=== PATIENT | male | born 1970 ===

== ENCOUNTER 2024-03-12 03:04 | Emergency (ER) | payer OTHER, SELFPAY ==
[2024-03-12 03:13] VITALS: BP 136/71; PULSE 76; RESP 16; TEMP 36.1; O2SAT 96; BMI 27.5
--- NOTE | 2024-03-12 03:33 | ED_ITS ---
HPI - General Adult General Chief complaint: Abdominal Pain Stated complaint: Abdominal pain Time Seen by Provider: 03/12/24 03:19 Source: patient and family Mode of arrival: ambulatory Limitations: no limitations History of Present Illness HPI narrative: 53-year-old male presents to the ED in the wee hours of the morning with a 4 day history of loose stools and abdominal cramping. Nauseated with no vomiting. No bloody stools, no fever. Does feel a little achy. He thinks he might be getting dehydrated despite the fact that he is clearly eating and drinking without complication. His is concerned because for the last 2 days every time he eats he has to go to the bathroom and have loose stools. They have not tried any Kaopectate, Imodium or Pepto-Bismol. There was no loss of consciousness, no severe weakness or confusion. He last urinated about 6 hours ago, uncomplicated. He is still drinking water. Had meat, rice and beans for dinner. Has not tried any pain medications. No sick contacts, no pertinent travel, no recent use of antibiotics. No abdominal trauma or injury. No prior abdominal surgeries. Did not try any other interventions prior to coming to the emergency department. Has not been evaluated in a primary care clinic, urgent care or other typical setting for these symptoms. Denies any significant past medical history. No allergies, no long-term medications, no prior abdominal surgeries. Nonsmoker. ROS notable for the abdominal symptoms and generalized symptoms as described above only, otherwise denies times 12 systems. Related Data Previous Rx's ?Medication ?Instructions ?Recorded loperamide 2 mg capsule (Imodium 2 mg PO Q4H PRN loose stool #20 03/12/24 A-D) caps ondansetron 4 mg disintegrating 4 mg PO Q8H PRN nausea and 03/12/24 tablet vomiting #7 tabs Allergies Allergy/AdvReac Type Severity Reaction Status Date / Time No Known Drug Allergies Allergy Verified 03/12/24 03:19 [facility] Social History Smoking Status: Never smoker Do you use any of these nicotine containing products: None Second hand tobacco smoke exposure: No How often do you have a drink containing alcohol: never How often do you have six or more drinks on one occasion: Never AUDIT-C Alcohol total score: 0 Non-prescribed substance use: denies use service: No Exam Const: Vital Signs, click to edit/add: Vital Signs - 24 hr 03/12/24 03:13 03/12/24 03:59 Temperature 96.9 F L Pulse Rate [Pulse Oximeter] 76 Pulse Rate [orthos tatic lying] 55 L Pulse Rate [orthos tatic sitting] 59 L Pulse Rate [orthos tatic standing] 63 Respiratory Rate 16 Blood Pressure [Ri ght Upper Arm] 136/71 Blood Pressure [or thostatic lying] 121/69 Blood Pressure [or thostatic sitting] 120/74 Blood Pressure [or thostatic standing ] 112/74 Pulse Oximetry 96 Oxygen Delivery Me thod Room Air Documenting provider has reviewed patient's vital signs: yes Common normals: no apparent distress and alert General appearance: cooperative and well kempt Other: Spouse seems quite nervous, patient calm HENMT: Common normals: normocephalic Head and scalp: normocephalic Face and sinus: normal facial exam Mouth: oral and palatal mucosa normal, lip normal, tongue normal and moist mucous membranes abnormal Throat: posterior oropharynx normal Other: Moist mucous membranes Eye: Common normals: conjunctivae normal General eye: normal appearance of both eyes Conjunctiva: conjunctiva(e) normal Neck & C-Spine: Common normals: no lymphadenopathy General: normal visual inspection Resp: Common normals: normal respiratory effort, no use of accessory muscles and clear to auscultation bilaterally Effort & inspection: able to speak in complete sentences Auscultation: clear to auscultation bilaterally Cardio: Common normals: regular rate, regular rhythm, S1 normal heart sound, S2 normal heart sound and no murmurs Rate: regular rate Rhythm: regular rhythm Heart sounds: S1 normal and S2 normal GI: Common normals: Normal to inspection, nondistended, normoactive bowel sounds present, soft to palpation, non-tender, no hepatosplenomegaly and no masses Palpation: soft and no hepatosplenomegaly : Common normals: no CVA tenderness Bladder/kidney exam: no CVA tenderness Back & Pelvis: Common normals: no CVA tenderness Extremity: Common normals: normal to inspection and normal capillary refill Neuro: Sensorium/orientation: alert Speech: speech normal Motor exam: no movement abnormalities noted Psych: Common normals: speech normal Appearance: well kempt Activity/motor behavior: appropriate eye contact Speech: normal speech Mood and affect: euthymic mood Attention/concentration: attention grossly intact Skin: Common normals: no rashes or lesions noted General skin exam: no rashes or lesions noted Course Course ED Course: 53-year-old afebrile male with stable vitals, moist membranes and no clinical signs of dehydration presenting with 4 days of loose stools and nausea without a trial of any [id number] medications. Clinical exam is quite reassuring. Patient thinks he needs IV fluids, I do not. Will obtain basic labs to ensure that there is no sign of biliary obstruction, leukocytosis, dehydration or kidney disease. Will obtain urinalysis and COVID swab. Will give oral Zofran, oral Imodium and oral Tylenol and re-evaluate. Fluid challenge and if he can not hold down fluids, he will be discharged on the same medications. Reevaluation(s) Time of Reevaluation #1: 04:25 Reevaluation #1: Labs are all reassuring. Orthostatic vitals are also reassuring. Patient tolerated oral medications well and has not had any vomiting and is holding down nutrition here in the ED without complication. I think this is a simple stomach flu. Patient should be able to manage with [id number] Imodium but will send a prescription for Zofran in case symptoms worsen. Counseled on pushing fluids and alarm symptoms that would warrant ED presentation. Primary care follow-up in 7-10 days if not improving. Update: COVID swabs are also negative. Vital Signs Vital signs: Initial Vital Signs Temperature 96.9 F L 03/12/24 03:13 Temperature Source Temporal Artery Scan 03/12/24 03:13 Pulse Rate 76 03/12/24 03:13 Pulse Rhythm Regular 03/12/24 03:13 Respiratory Rate 16 03/12/24 03:13 Blood Pressure 136/71 03/12/24 03:13 Blood Pressure Mean 92 03/12/24 03:13 Blood Pressure Position Sitting 03/12/24 03:13 Pulse Oximetry 96 03/12/24 03:13 Oxygen Delivery Method Room Air 03/12/24 03:13 Vital Signs Temperature 96.9 F L 03/12/24 03:13 Pulse Rate 76 03/12/24 03:13 Respiratory Rate 16 03/12/24 03:13 Blood Pressure 136/71 03/12/24 03:13 Pulse Oximetry 96 03/12/24 03:13 Oxygen Delivery Method Room Air 03/12/24 03:13 Temperature 96.9 F L 03/12/24 03:13 Pulse Rate 55 L 03/12/24 03:59 Respiratory Rate 16 03/12/24 03:13 Blood Pressure 121/69 03/12/24 03:59 Pulse Oximetry 96 03/12/24 03:13 Oxygen Delivery Method Room Air 03/12/24 03:13 Medications Administered Medications: Generic Name Dose Route Start Last Admin Trade Name Leesa PRN Reason Stop Dose Admin Acetaminophen 1,000 mg 03/12/24 03:30 03/12/24 03:42 Acetaminophen 500 Mg Tablet PO 03/12/24 03:31 1,000 mg ONCE ONE Administration Loperamide HCl 4 mg 03/12/24 03:30 03/12/24 03:41 Loperamide Hcl 2 Mg Capsule PO 03/12/24 03:31 4 mg ONCE ONE Administration Ondansetron HCl 4 mg 03/12/24 03:30 03/12/24 03:41 Ondansetron Odt 4 Mg Tab PO 03/12/24 03:31 4 mg ONCE ONE Administration Medical Decision Making Lab Data Lab results reviewed: Yes I reviewed the patient's lab results Lab results narrative: Reassuring. No leukocytosis, elevated bilirubin, abnormal like to lytes, dehydration or abnormal urinalysis. Labs: Lab Results 03/12/24 03/12/24 Range/Units 03:40 03:45 WBC 4.71 (4.50-11.00) K/uL RBC 4.68 (4.30-5.90) m/uL Hgb 14.6 (13.5-17.5) gm/dL Hct 43.2 (37.0-53.0) % MCV 92 (80-100) fL MCH 31 (26-34) pg MCHC 34 (32-36) gm/dL RDW Coeff of Alberto 12.6 (11.5-15.5) % Plt Count 157 (140-440) K/uL Neut % (Auto) 48.0 (42.0-72.0) % Lymph % (Auto) 34.8 (20-44) % [place] % (Auto) 13.8 H (0.0-11.0) % Eos % (Auto) 2.8 (0.0-7.0) % Baso % (Auto) 0.2 (0.0-3.0) % Neut # (Auto) 2.26 (1.7-7.0) K/uL Lymph # (Auto) 1.64 (0.90-2.90) K/uL Sully # (Auto) 0.60 (0.00-0.90) K/UL Eos # (Auto) 0.13 (0.00-0.50) K/uL Baso # (Auto) 0.01 (0.00-0.30) K/uL Abs Immat Gran (auto) 0.02 (0.00-0.30) K/uL Imm/Tot Granulo (auto) 0.4 % Sodium 138 (135-149) mmol/L Potassium 3.5 L (3.6-5.1) mmol/L Chloride 106 (96-114) mmol/L Carbon Dioxide 24 (20-32) mmol/L Anion Gap 8 (7-15) mEq/L BUN 22 (7-30) mg/dL Creatinine 1.2 (0.5-1.5) mg/dL Estimated Creat Clear 60.30 Estimated GFR 73 ml/min Glucose 119 H (60-115) mg/dL Lactate 0.9 (0.5-1.9) mmol/L Calcium 8.6 (8.4-10.6) mg/dL Total Bilirubin 0.5 (0.1-1.5) mg/dL AST 36 H (12-35) U/L ALT 37 (4-50) U/L Alkaline Phosphatase 87 (40-150) U/L C-Reactive Protein 1.5 H (0.5-1.0) mg/dL Total Protein 7.2 (6.0-8.3) g/dL Albumin 4.3 (3.3-5.0) g/dL Urine Color Yellow (Yellow) Urine Appearance Clear (Clear) Urine pH 6.5 (5.0-8.5) Ur Specific [place] 1.025 (1.000-1.030) Urine Protein Negative (Negative) Urine Glucose (UA) Negative (Negative) Urine Ketones Negative (Negative) Urine Blood Negative (Negative) Urine Nitrite Negative (Negative) Urine Bilirubin Negative (Negative) Urine Urobilinogen 0.2 (0.2-1.0) Ur Leukocyte Esterase Negative (Negative) SARS-CoV-2 (PCR) Negative SARS-CoV-2 (Negative) Influenza Type A (PCR) Negative PCR FLU A (Negative) Influenza Type B (PCR) Negative PCR FLU B (Negative) RSV (PCR) Negative PCR RSV (Negative) Discharge Plan Discharge Clinical Impression: Gastroenteritis Patient Disposition: Home w/ Parent or Adult Condition: Improved Instructions: Gastroenteritis (DC) Additional Instructions: As we discussed, there are no clinical signs of dehydration on your exam today. Typically, the emergency department is necessary if you have been physically unable to hold down any food or liquid for several days, have high fever, bloody stools or other emergent type symptoms. In the future, it is always a good idea to try [id number] Imodium for loose stools and Tylenol and or ibuprofen for abdominal pain. With these typical mild stomach viruses, symptoms will tend to last for 3-7 days. You should be re-evaluated if symptoms are not improving in 1 week in the clinic. In the meantime, it is safe for you to continue use of the Imodium 1 tablet every 2 hours if you continue to have loose stools. Will also give you prescription for a few Zofran, the anti nausea medication. You may use this up to every 6 hours. Continue to advance her diet and drink lots of fluids until your symptoms improve. You may return to all work and or school duties. Activity Level: No Restrictions Discharge Diet: Regular Prescriptions: New ondansetron 4 mg tablet,disintegrating 4 mg PO Q8H PRN (Reason: nausea and vomiting) Qty: 7 0RF loperamide [Imodium A-D] 2 mg capsule 2 mg PO Q4H PRN (Reason: loose stool) Qty: 20 0RF Rx Instructions: administer after each loose stool until symptoms controlled; do not exceed 8 mg per 24 hrs Stand Alone Forms: [employer] Info Instructions
[2024-03-12] MEDS: ONDANSETRON ODT 4 MG TAB PO (03:41)
[2024-03-12] MEDS: LOPERAMIDE HCL 2 MG CAPSULE 4 MG PO (03:41)
[2024-03-12] MEDS: ACETAMINOPHEN 500 MG TABLET 1000 MG PO (03:42)
[2024-03-12 03:53] LABS: Lactate* 0.9 mmol/L (0.5-1.9)
[2024-03-12 03:54] LABS: Basophils Absolute Auto 0.01 K/uL (0.00-0.30); Basophils Percent Auto 0.2 % (0.0-3.0); Eosinophils Absolute Auto 0.13 K/uL (0.00-0.50); Eosinophils Percent Auto 2.8 % (0.0-7.0); Hematocrit 43.2 % (37.0-53.0); Hemoglobin* 14.6 gm/dL (13.5-17.5); Immature Granulocytes Abs Auto 0.02 K/uL (0.00-0.30); Immature Granulocytes Pct Auto 0.4 %; Lymphocytes Absolute Auto 1.64 K/uL (0.90-2.90); Lymphocytes Percent Auto 34.8 % (20-44); Mean Corpuscular HGB Conc 34 gm/dL (32-36); Mean Corpuscular Hemoglobin 31 pg (26-34); Mean Corpuscular Volume 92 fL (80-100); Monocytes Percent Auto 13.8 % (0.0-11.0); Neutrophils Absolute Auto 2.26 K/uL (1.7-7.0); Platelet Count* 157 K/uL (140-440); RDW Coefficient of Variation % 12.6 % (11.5-15.5); Red Blood Count 4.68 m/uL (4.30-5.90); White Blood Count* 4.71 K/uL (4.50-11.00)
[2024-03-12 03:57] LABS: Slide Review Reflex No
--- NOTE | 2024-03-12 03:57 | PC.NURSE ---
Pt's states pt woke up to go to the bathroom tonight and when he stood he felt dizzy and heart pounding. She said pt was scared and was then brought to ED. Orthostatics done prior to PO challenge.
[2024-03-12 03:58] LABS: Appearance Urine Clear (Clear); Bilirubin Urine Negative (Negative); Blood Urine Negative (Negative); Color Urine Yellow (Yellow); Glucose Urine Negative (Negative); Ketones Urine Negative (Negative); Leukocyte Esterase Urine Negative (Negative); Nitrite Urine Negative (Negative); Protein Urine Negative (Negative); Specific Gravity Urine 1.025 (1.000-1.030); Urobilinogen Urine 0.2 (0.2-1.0); pH Urine 6.5 (5.0-8.5)
[2024-03-12 03:59] VITALS: BP 112/74; BP 120/74; BP 121/69; PULSE 55; PULSE 59; PULSE 63
[2024-03-12 04:06] LABS: Chloride* 106 mmol/L (96-114)
[2024-03-12 04:07] LABS: Albumin* 4.3 g/dL (3.3-5.0); Potassium* 3.5 mmol/L (3.6-5.1); Sodium* 138 mmol/L (135-149)
[2024-03-12 04:09] LABS: Creatinine* 1.2 mg/dL (0.5-1.5); Estimated Glomerular Filt Rate 73 ml/min
[2024-03-12 04:10] LABS: Alanine Aminotransferase* 37 U/L (4-50); Alkaline Phosphatase* 87 U/L (40-150); Anion Gap 8 mEq/L (7-15); Aspartate Amino Transferase* 36 U/L (12-35); Bilirubin Total* 0.5 mg/dL (0.1-1.5); Blood Urea Nitrogen* 22 mg/dL (7-30); Carbon Dioxide* 24 mmol/L (20-32); Glucose* 119 mg/dL (60-115); Total Protein* 7.2 g/dL (6.0-8.3)
[2024-03-12 04:11] LABS: Calcium* 8.6 mg/dL (8.4-10.6)
[2024-03-12 04:13] LABS: C Reactive Protein* 1.5 mg/dL (0.5-1.0)
[2024-03-12 04:32] LABS: PCR FLU A Negative PCR FLU A (Negative); PCR FLU B Negative PCR FLU B (Negative); PCR RSV Negative PCR RSV (Negative); SARS PCR* Negative SARS-CoV-2 (Negative)
== END 2024-03-12 04:53 | disposition home or self-care (01) ==
PROVIDERS: Emergency Provider Family Medicine
DX: K52.9 Noninfective gastroenteritis and colitis, unspecified (principal)
CPT/HCPCS: 36415; 80053; 81003; 83605; 85025; 86140; 87631; 99283; A9270